=== PATIENT | female | born 1980 | race American Indian/Alaskan Native ===

== ENCOUNTER 2020-06-12 08:45 | Outpatient (CLI) | payer OTHER ==
--- NOTE | 2020-06-12 10:44 | XRay Report ---
CERVICAL SPINE CLINICAL DATA: LEFT ELBOW PAIN TECHNICAL DATA: AP, lateral, oblique, and odontoid views of the cervical spine were obtained FINDINGS: The vertebral body heights, disc spaces, and alignment are well within normal limits. There is no giovanny dence of fracture. No prevertebral soft tissue swelling is evident. Flexion and extension views demon strate normal range of motion. IMPRESSION: Normal examination of the cervical spine AP PELVIS CLINICAL DATA: LEFT ELBOW PAIN TECHNICAL DATA: AP view FINDINGS: There is no acute fracture or dislocation. The visualized joint spaces are normal. The femoral heads appear normally positioned in the acetabular fossa. IMPRESSION: No acute radiographic abnormality. ELBOW. CLINICAL DATA: LEFT ELBOW PAIN TECHNICAL DATA: 4 views of the elbow were obtained, AP, lateral, obliques FINDINGS: Evidence of open reduction internal fixation for previous injury to the elbow. There is no acute fracture or dislocation. There is visualization of the anterior humeral fat pad. Th is is no consistent with a joint effusion. The radial head articulates normally with the capitellum a nd the ulna articulates normally with the trochlea. No obvious fractures identified. IMPRESSION: 1. There is no convincing acute fracture detected at this time. LEFT WRIST HISTORY: Elbow pain elbow pain COMPARISON: None. TECHNIQUE: AP lateral and obliques views were obtained FINDINGS: Bones: No fracture or dislocation. Joint spaces: Maintained. Soft tissues: No significant abnormality. Additional findings: None. IMPRESSION: 1. No significant abnormality Signer Name: Michael Nicholas MD Signed: 06/12/2020 10:39 AM Workstation Name: [id number]
--- NOTE | 2020-06-12 11:06 | XRay Report ---
BILATERAL KNEES AP STANDING INDICATION: KNEE BILATERAL PAIN. COMPARISON: None. IMPRESSION: No acute osseous or soft tissue abnormality. No significant DJD. No significant varus or valgus deformity. Signer Name: Herman Strauss Jr, MD Signed: 06/12/2020 11:01 AM Workstation Name: [id number]
== END 2020-06-12 08:46 | disposition home or self-care (01) ==
LOC: XRAY 08:45
PROVIDERS: ATTEND Orthopaedic Surgery
DX: M54.2 Cervicalgia (principal); M25.532 Pain in left wrist; M25.559 Pain in unspecified hip
CPT/HCPCS: 72050; 72170; 73565

== ENCOUNTER 2020-07-17 10:55 | Outpatient (CLI) | payer OTHER ==
--- NOTE | 2020-07-17 11:42 | XRay Report ---
LEFT ANKLE 4 VIEWS INDICATION / CLINICAL INFORMATION: LEFT ANKLE PAIN. COMPARISON: None available. FINDINGS: ORIF of distal tibial fracture. No other significant skeletal abnormality Signer Name: Arsenio Palacios MD FACAlexandre Signed: 07/17/2020 11:38 AM Workstation Name: [id number]
== END 2020-07-17 10:56 | disposition home or self-care (01) ==
LOC: XRAY 10:55
PROVIDERS: ATTEND Orthopaedic Surgery
DX: S82.202D Unspecified fracture of shaft of left tibia, subsequent encounter for closed fracture with routine healing (principal); X58.XXXD Exposure to other specified factors, subsequent encounter

== ENCOUNTER 2021-02-14 12:31 | Outpatient (CLI) | payer OTHER ==
[2021-02-14 13:11] LABS: Basophils % (Auto) 0.7 % (0.0-1.8); Eosinophils # (Auto) 0.5 K/mm3 (0.0-0.4); Eosinophils % (Auto) 10.3 % (0.0-4.3); Hematocrit 41.6 % (30.3-42.9); Hemoglobin 13.2 gm/dl (10.1-14.3); Lymphocytes # (Auto) 1.6 K/mm3 (1.2-5.4); Lymphocytes % (Auto) 36.8 % (13.4-35.0); Mean Corpuscular HGB Conc 32 % (30-34); Mean Corpuscular Volume 88 fl (79-97); Monocytes # (Auto) 0.5 K/mm3 (0.0-0.8); Platelet Count 205 K/mm3 (140-440); Red Blood Count 4.74 M/mm3 (3.65-5.03); Red Cell Distribution Width 13.6 % (13.2-15.2)
[2021-02-14 13:19] LABS: Alanine Aminotransferase 11 units/L (7-56); Albumin 4.7 g/dL (3.9-5); BUN/Creatinine Ratio 9; Blood Urea Nitrogen 8 mg/dL (7-17); Calcium 9.6 mg/dL (8.4-10.2); Hemolysis Index 5
== END 2021-02-14 12:32 | disposition home or self-care (01) ==
LOC: LAB 12:31
PROVIDERS: ATTEND Specialist
DX: R42 Dizziness and giddiness (principal)
CPT/HCPCS: 36415; 80053; 85025

== ENCOUNTER 2021-10-03 10:45 | Emergency (ER) | payer OTHER | END 2021-10-04 00:10 | disposition left against medical advice (07) | LOC: ED 10:45 | DX: M54.9 Dorsalgia, unspecified (principal); N23 Unspecified renal colic; Z53.21 Procedure and treatment not carried out due to patient leaving prior to being seen by health care provider ==